=== PATIENT | female | born 1960 | race Caucasian/White ===

== ENCOUNTER 2017-01-30 14:38 | Outpatient (CLI) | payer OTHER ==
--- NOTE | 2017-01-30 16:47 | DIAGNOSTIC IMAGING REPORT ---
PROCEDURE: MG BILATERAL SCREENING W/CAD INDICATION: Screening. History of non-Hodgkins lymphoma. TECHNIQUE: Bilateral CC and MLO digital views. COMPARISON: Compared to outside mammogram from [facility] on 07/25/2010. FINDINGS: Computer-aided detection applied. Mildly dense and nodular with a few dystrophic calcifications. The breasts are unchanged. There has been interval resolution of axillary adenopathy. IMPRESSION: 1. Interval resolution of axillary adenopathy. 2. Negative mammogram. RESULT CODE: 1- Negative. A. A negative report should not delay biopsy if a dominant or clinically suspicious mass is present. 10-15% of cancers are not identified by x-ray. B. A negative report may reinforce clinical impression. C. Adenosis and dense breasts may obscure an underlying neoplasm. D. False positive reports average 6-10%. E.. A yearly screening mammogram is recommended. A reminder letter will be scheduled.
--- NOTE | 2017-01-30 16:47 | DIAGNOSTIC IMAGING REPORT ---
PROCEDURE: MG BILATERAL SCREENING W/CAD INDICATION: Screening. History of non-Hodgkins lymphoma. TECHNIQUE: Bilateral CC and MLO digital views. COMPARISON: Compared to outside mammogram from [facility] on 07/25/2010. FINDINGS: Computer-aided detection applied. Mildly dense and nodular with a few dystrophic calcifications. The breasts are unchanged. There has been interval resolution of axillary adenopathy. IMPRESSION: 1. Interval resolution of axillary adenopathy. 2. Negative mammogram. RESULT CODE: 1- Negative. A. A negative report should not delay biopsy if a dominant or clinically suspicious mass is present. 10-15% of cancers are not identified by x-ray. B. A negative report may reinforce clinical impression. C. Adenosis and dense breasts may obscure an underlying neoplasm. D. False positive reports average 6-10%. E.. A yearly screening mammogram is recommended. A reminder letter will be scheduled.
== END 2017-01-30 23:00 ==
LOC: MAM SRH 14:38
DX: Z12.31 Encounter for screening mammogram for malignant neoplasm of breast (principal); Z85.72 Personal history of non-Hodgkin lymphomas